=== PATIENT | female | born 1950 | race Caucasian/White ===

== ENCOUNTER → 2022-05-08 | Day surgery (SDC) | payer MEDICARE ==
[~2022-05-08] VITALS: Ht 161.3 cm; Wt 98.0 kg
[~2022-05-08] MED LIST: ASCORBIC ACID500 MG PO; BUSPIRONE HCL15 MG PO; CIPRO500 MG PO; ESOMEPRAZOLE MA40 MG PO; GLUCOTROL5 MG PO; IRON325 M1 PO; LIPITOR20 MG PO; LISINOPRIL-HCT1 EAC1 PO; METFORMIN HCL500 MG PO; METOPROLOL PO; METRONIDAZOLE500 MG PO; MIRAPEX0.25 MG PO; NAPROXEN500 MG PO; NORCO 5-325 TA1 EACH PO; PROBIOTIC PO; TRAZODONE 50MG50 MG PO; VITAMIN B122500 MCG PO; ZINC30 MG PO; ZOLOFT50 MG PO
[2022-05-08 12:43] LABS: HCT 36.3 % (37.0-47.0); HGB 12.3 g/dl (12.5-16.0); MCH 30.1 pg (25.0-31.0); MCHC 33.9 g/dL (32.0-36.0); MPV 9.7 fL (6.0-9.5); RBC 4.08 M/uL (4.20-5.40); RDW 13.3 % (11.5-14.0); WBC 8.3 K/uL (4.0-10.5)
[2022-05-08 13:18] LABS: ALBUMIN 3.9 g/dL (3.4-5.0); BILIRUBIN - TOTAL 0.6 mg/dL (0.2-1.0); BUN/CREAT RATIO (CALC) 28.7 RATIO; CREATININE 1.01 mg/dL (0.51-0.95); GLOBULIN (CALCULATION) 3.6 g/dL; POTASSIUM 5.1 mmol/L (3.5-5.1); TOTAL PROTEIN 7.5 g/dL (6.4-8.2)
== END | disposition home or self-care (01) ==
LOC: FAS 11:20
PROVIDERS: Surgery
DX: K52.9 Noninfective gastroenteritis and colitis, unspecified (principal); I10 Essential (primary) hypertension; E78.00 Pure hypercholesterolemia, unspecified; G47.30 Sleep apnea, unspecified; E11.9 Type 2 diabetes mellitus without complications; F32.A Depression, unspecified; Z87.891 Personal history of nicotine dependence
CPT/HCPCS: 36415; 80053; J2704; J7120